=== PATIENT | male | born 1950 | race Caucasian/White ===

== ENCOUNTER 2017-02-19 20:37 | Emergency (ER) | payer MEDICARE, BC ==
[2017-02-19 21:10] VITALS: BP 145/88
[2017-02-19] MEDS ORDERED: Acetaminophen 500 MG Tab PO ONE (21:30)
--- NOTE | 2017-02-19 21:57 | EDM.PDOC ---
ED HPI GENERAL MEDICAL PROBLEM - General Chief Complaint: Bite:Animal, Insect Stated Complaint: BODY ACHES,FEVER, TICK BITE Time Seen by Provider: 02/19/17 21:15 Source of Information: Reports: Patient History Limitations: Reports: No Limitations - History of Present Illness INITIAL COMMENTS - FREE TEXT/NARRATIVE: Patient presents today with complaints of general malaise, body and joint aches , fever. Patient had a known tick bite 5 days ago. 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 generalized Pain Score (Numeric/FACES): 3 - Related Data Allergies Allergy/AdvReac Type Severity Reaction Status Date / Time aspirin Allergy Swelling Verified 02/19/17 21:01 ibuprofen Allergy Swelling Verified 02/19/17 21:02 Penicillins Allergy Swelling Verified 02/19/17 21:02 Home Meds: Home Meds Losartan/Hydrochlorothiazide [Losartan-HCTZ 100-25 MG] 1 tab PO DAILY 02/19/17 [ History] atorvaSTATin [Lipitor] 40 mg PO ONETIME 02/19/17 [History] Past Medical History HEENT History: Reports: Impaired Vision Cardiovascular History: Reports: High Cholesterol, Hypertension Musculoskeletal History: Reports: Arthritis - Infectious Disease History Infectious Disease History: Reports: Chicken Pox, Measles, Mumps - Past Surgical History GI Surgical History: Reports: Colonoscopy Social & Family History - Tobacco Use Smoking Status *Q: Never Smoker Second Hand Smoke Exposure: No - Caffeine Use Caffeine Use: Reports: Coffee, Soda - Alcohol Use Days Per Week of Alcohol Use: 7 Number of Drinks Per Day: 2 Total Drinks Per Week: 14 Date of Last Drink: 02/19/17 Time of Last Drink: 10:00 - Recreational Drug Use Recreational Drug Use: No ED ROS GENERAL - Review of Systems Review Of Systems: See Below Constitutional: Reports: Fever, Chills, Malaise, Fatigue, Decreased Appetite. Denies: Weakness, Night Sweats, Diaphoresis HEENT: Reports: No Symptoms Respiratory: Denies: Shortness of Breath, Wheezing, Cough, Sputum Cardiovascular: Denies: Chest Pain, Blood Pressure Problem, Dyspnea on Exertion , Edema, Lightheadedness, Orthopnea, Palpitations, PND, Syncope Endocrine: Reports: Fatigue. Denies: Polydypsia, Polyuria GI/Abdominal: Denies: Abdominal Pain, Black Stool, Bloody Stool, Constipation, Diarrhea, Difficulty Swallowing, Hematemesis, Hematochezia, Melena, Nausea, Vomiting : Denies: Dysuria, Frequency, Urgency, Urinary Retention Musculoskeletal: Reports: Joint Pain, Muscle Pain. Denies: Joint Swelling Skin: Reports: Erythema, Lesions. Denies: Cyanosis, Bruising, Rash Neurological: Reports: Headache. Denies: Confusion, Dizziness, Numbness, Tingling Psychiatric: Reports: No Symptoms Hematologic/Lymphatic: Reports: No Symptoms Immunologic: Reports: No Symptoms ED EXAM, ANIMAL BITE - Physical Exam Exam: See Below Text/Narrative:: Patient with known tick bite to two different locations of body. Exam Limited By: No Limitations General Appearance: Alert, WD/WN, No Apparent Distress Eye Exam: Bilateral Eye: Normal Inspection, PERRL Ears: Normal External Exam, Normal Canal, Hearing Grossly Normal, Normal TMs Nose: Normal Inspection, Normal Mucosa, No Blood Throat/Mouth: Normal Inspection, Normal Lips, Normal Teeth, Normal Gums, Normal Oropharynx, Normal Voice, No Airway Compromise Head: Atraumatic, Normocephalic Neck: Normal Inspection, Supple, Non-Tender, Full Range of Motion Respiratory/Chest: No Respiratory Distress, Lungs Clear, Normal Breath Sounds, No Accessory Muscle Use, Chest Non-Tender Cardiovascular: Normal Peripheral Pulses, Regular Rate, Rhythm, No Edema, No Gallop, No Murmur, No Rub Peripheral Pulses: 2+: Radial (L), Radial (R), Dorsalis Pedis (L), Dorsalis Pedis (R) GI/Abdominal: Normal Bowel Sounds, Soft, Non-Tender, No Organomegaly, No Distention, No Abnormal Bruit, No Mass Back Exam: Normal Inspection, Full Range of Motion. No: CVA Tenderness (R), CVA Tenderness (L) Extremities: Normal Inspection, Normal Range of Motion, Non-Tender, No Pedal Edema, Normal Capillary Refill Neurological: Alert, Oriented, CN II-XII Intact, Normal Cognition, Normal Gait, No Motor/Sensory Deficits Psychiatric: Normal Affect, Normal Mood Skin Exam: Normal Color, Warm/Dry, Other (known tick bite to left mid-back, and abdomen. No evidence of erythema migrans at this time, however there is localized erythema noted to 1cm of less to both areas mentioned. ) Lymphadenopathy: Bilateral: No Adenopathy Lymphatic: No Adenopathy Course - Vital Signs Last Recorded V/S: Last Vital Signs Temp 38.9 C H 02/19/17 21:09 Pulse 86 02/19/17 21:09 Resp 16 02/19/17 21:09 BP 145/88 H 02/19/17 21:09 Pulse Ox 99 02/19/17 21:09 - Orders/Labs/Meds Orders: Active Orders 24 hr Category Date Time Status BABESIA MICROTI IGG AND IGM [REF] Stat Lab 02/19/17 21:48 Received EHRLICHIA CHAFFEENSIS, IGG&IGM [REF] Stat Lab 02/19/17 21:48 Received LYME,BY PCR [REF] Routine Lab 02/19/17 21:48 Received Labs: Laboratory Tests 02/19/17 Range/Units 21:48 WBC 5.6 (4.5-11.0) K/uL RBC 4.18 L (4.30-5.90) M/uL Hgb 13.7 (12.0-15.0) g/dL Hct 39.8 L (40.0-54.0) % MCV 95 (80-98) fL MCH 33 H (27-31) pg MCHC 34 (32-36) % Plt Count 182 (150-400) K/uL Neut % (Auto) 74 H (36-66) % Lymph % (Auto) 13 L (24-44) % [place] % (Auto) 12 H (2-6) % Eos % (Auto) 0 L (2-4) % Baso % (Auto) 0 (0-1) % Lab work reviewed. Meds: Medications Discontinued Medications Generic Name Dose Route Start Last Admin Trade Name Freq PRN Reason Stop Dose Admin Acetaminophen 1,000 mg 02/19/17 21:30 02/19/17 21:37 Tylenol Extra Strength PO 02/19/17 21:31 1,000 mg ONETIME ONE Administration Departure - Departure Time of Disposition: 22:02 Disposition: Home, Self-Care 01 Condition: Fair Clinical Impression: Tick bite, Arthralgia, Fever - Discharge Information Instructions: Insect Bite, [id number] Referrals: PCP,None [Primary Care Provider] - Forms: ED Department Discharge Additional Instructions: Tick bite - start use of Doxycycline 100mg PO, one tablet twice per day for 14 days. Follow up with your primary care provider. Fever/Arthralgia - take acetaminophen (tylenol) 650mg to 1000mg up to three times a day. If your symptoms worsen, return to the Emergency room or clinic. You have signed a medical release for our facility to be able to fax your test results to your primary provider. - My Orders Last 24 Hours: My Active Orders 02/19/17 21:48 BABESIA MICROTI IGG AND IGM [REF] Stat EHRLICHIA CHAFFEENSIS, IGG&IGM [REF] Stat LYME,BY PCR [REF] Routine - Assessment/Plan Last 24 Hours: My Active Orders 02/19/17 21:48 BABESIA MICROTI IGG AND IGM [REF] Stat EHRLICHIA CHAFFEENSIS, IGG&IGM [REF] Stat LYME,BY PCR [REF] Routine Assessment:: Tick Bite Arthralgia Fever Plan: Tick bite - start use of Doxycycline 100mg PO, one tablet twice per day for 14 days. Follow up with his primary care provider in 10 to 14 days. Fever/Arthralgia - take acetaminophen (tylenol) 650mg to 1000mg up to three times a day. If symptoms worsen, return to the Emergency room or clinic. He has signed a medical release for our facility to be able to fax your test results to his primary provider. [place] will be notified via telephone of [facility]ym[facility] testing, we can also fax results to his primary care provider.
== END 2017-02-19 22:28 | disposition home or self-care (01) ==
LOC: JP.ED 20:37
DX: S30.861A Insect bite (nonvenomous) of abdominal wall, initial encounter (principal); S30.860A Insect bite (nonvenomous) of lower back and pelvis, initial encounter; M25.50 Pain in unspecified joint; R50.9 Fever, unspecified; E78.00 Pure hypercholesterolemia, unspecified; I10 Essential (primary) hypertension; Z88.5 Allergy status to narcotic agent; Z88.6 Allergy status to analgesic agent; Z88.0 Allergy status to penicillin; Z79.899 Other long term (current) drug therapy; W57.XXXA Bitten or stung by nonvenomous insect and other nonvenomous arthropods, initial encounter
CPT/HCPCS: 85025; 86666; 86753; 87476; 99284; A9270; 36415; 99283